=== PATIENT | female | born 1990 | race Caucasian/White ===

== ENCOUNTER 2021-12-25 17:59 | Emergency (ER) | payer OTHER ==
[2021-12-25] MEDS ORDERED: TYLENOL325 M1 PO (18:21)
[2021-12-25] MEDS ORDERED: [UNRECOGNIZED DRUG - OTHER] T (18:21)
[2021-12-25] MEDS ORDERED: NAPROXEN250 MG PO (18:21)
== END 2021-12-25 18:20 | disposition home or self-care (01) ==
LOC: ED 17:59
DX: T22.112A Burn of first degree of left forearm, initial encounter (principal); X19.XXXA Contact with other heat and hot substances, initial encounter; Y93.89 Activity, other specified; Y92.89 Other specified places as the place of occurrence of the external cause; Y99.8 Other external cause status